=== PATIENT | male | born 1965 | race Caucasian/White ===

== ENCOUNTER 2021-02-07 11:52 | Day surgery (SDC) | payer OTHER ==
[2021-02-06 14:55] LABS: COVID AG,FIA SOURCE NASOPHARYNGEAL
[~2021-02-07] VITALS: Ht 170.2 cm; Wt 100.0 kg
[~2021-02-07 11:52] MED LIST: FURO40 PO; METF-960 PO; SODIUM CHLORIDE 0.9% 1,000 ML IV ONE; SODIUM CHLORIDE 0.9% 1,000 ML ONE; SPIR50 PO
[2021-02-07] MEDS ORDERED: LIDOCAINE/PF 2% 5 ML VIAL IM ONE (11:53)
[2021-02-07] MEDS ORDERED: PHENYLEPHRINE HCL 10 MG/ML VIAL IVP ONE (11:53)
[2021-02-07 12:46] LABS: GLUCOMETER DEV NAME(LOC) SDS.; GLUCOSE,POINT OF CARE 99 MG/DL (70-110)
== END 2021-02-07 14:50 | disposition home or self-care (01) ==
LOC: SURGERY 11:52
PROVIDERS: ATTEND Internal Medicine Gastroenterology
DX: I85.00 Esophageal varices without bleeding (principal); K76.6 Portal hypertension; K31.89 Other diseases of stomach and duodenum; Z87.891 Personal history of nicotine dependence; Z98.890 Other specified postprocedural states; I10 Essential (primary) hypertension; K70.30 Alcoholic cirrhosis of liver without ascites; K59.09 Other constipation; Z20.822 Contact with and (suspected) exposure to COVID-19; K21.9 Gastro-esophageal reflux disease without esophagitis; E11.9 Type 2 diabetes mellitus without complications
CPT/HCPCS: 43239; 82962; 87426; 88305; 88312; 88313; C9803; J2370; J3490; J7030; 88342